=== PATIENT | female | born 1980 | race African-American/Black ===

== ENCOUNTER 2019-06-24 21:32 | Emergency (ER) | payer OTHER, BC ==
[2019-06-25] MEDS ORDERED: KETOROLAC TROMETHAMINE 60 MG/2 ML SDV IM ONE (00:17)
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
[2019-06-25 01:02] VITALS: BP 122/68
== END 2019-06-25 01:21 | disposition home or self-care (01) ==
LOC: ER 21:32
DX: M54.6 Pain in thoracic spine (principal); V43.52XA Car driver injured in collision with other type car in traffic accident, initial encounter
CPT/HCPCS: 99283; 96372; J1885